=== PATIENT | male | born 1965 ===

== ENCOUNTER 2017-12-02 21:23 | Emergency (ER) | payer SELFPAY ==
[2017-12-02 21:28] VITALS: O2SAT 99
--- NOTE | 2017-12-02 22:11 | ED PDOC ---
HPI: General Adult Time Seen by Provider: 12/02/17 21:39 Chief Complaint (Nursing): High Blood Pressure Chief Complaint (Provider): medical and psych clearnace History Per: Patient History/Exam Limitations: no limitations Onset/Duration Of Symptoms: Hrs (today) Additional Complaint(s): Lon Carrington is a 52 year old male, with a past medical history of HTN and diabetes, who presents to the emergency department with no complaints and in custody of [facility] for medical and psychiatric clearance for incarceration. Patient was placed on police arrest. Patient reports he did take his blood pressure medications this morning but neglected to take metformin. He denies any fever, chills, chest pain, shortness of breath, nausea, vomit, diarrhea, abdominal pain, suicidal or homicidal ideation, no visual or auditory hallucinations. No further medical complaints. PDM: Kevin Johnson Past Medical History Reviewed: Historical Data, Nursing Documentation, Vital Signs Vital Signs: Last Vital Signs Temp 98.6 F 12/02/17 21:24 Pulse 83 12/02/17 21:24 Resp 16 12/02/17 21:24 BP 153/103 H 12/02/17 21:24 Pulse Ox 99 12/02/17 22:17 - Medical History PMH: Diabetes, HTN - Surgical History Other surgeries: right hand surgery - Family History Family History: States: No Known Family Hx - Social History Current smoker - smoking cessation education provided: Yes (occasional) Alcohol: Occasional - Allergies Allergies/Adverse Reactions: Allergies Allergy/AdvReac Type Severity Reaction Status Date / Time No Known Allergies Allergy Verified 12/02/17 21:24 Review of Systems ROS Statement: Except As Marked, All Systems Reviewed And Found Negative Constitutional: Negative for: Fever, Chills Cardiovascular: Negative for: Chest Pain Respiratory: Negative for: Shortness of Breath Gastrointestinal: Negative for: Nausea, Vomiting, Abdominal Pain, Diarrhea Psych: Negative for: Suicidal ideation (homicidal ideation), Other (visual or auditory hallucination) Physical Exam - Reviewed Nursing Documentation Reviewed: Yes Vital Signs Reviewed: Yes - Physical Exam Appears: Positive for: Non-toxic, No Acute Distress Head Exam: Positive for: ATRAUMATIC, NORMOCEPHALIC Skin: Positive for: Normal Color, Warm, Dry Eye Exam: Positive for: Normal appearance, EOMI, PERRL Neck: Positive for: Painless ROM Cardiovascular/Chest: Positive for: Regular Rate, Rhythm. Negative for: Murmur Respiratory: Positive for: Normal Breath Sounds. Negative for: Respiratory Distress Gastrointestinal/Abdominal: Positive for: Normal Exam, Soft. Negative for: Tenderness Back: Positive for: Normal Inspection. Negative for: L CVA Tenderness, R CVA Tenderness, Vertebral Tenderness Extremity: Positive for: Normal ROM (upper and lower extremities). Negative for : Deformity, Swelling Neurologic/Psych: Positive for: Alert, Oriented. Negative for: Motor/Sensory Deficits - ECG O2 Sat by Pulse Oximetry: 99 (RA) Pulse Ox Interpretation: Normal Medical Decision Making Medical Decision Making: Initial Impression: 52 y/o male for psychiatric clearance. Initial Plan: --Crisis evaluation --Glucose, POC --Metformin 500 mg PO --Accucheck --Reevaluation 22:35 -Patient evaluated by crisis and is medically stable for discharge to [facility]. Diagnosis hypertension and diabetes. ----- Scribe Attestation: Documented by Dipesh Sutotn, acting as a scribe for Mariano Blancas MD. Provider Scribe Attestation: All medical record entries made by the Scribe were at my direction and personally dictated by me. I have reviewed the chart and agree that the record accurately reflects my personal performance of the history, physical exam, medical decision making, and the department course for this patient. I have also personally directed, reviewed, and agree with the discharge instructions and disposition. Disposition - Clinical Impression Clinical Impression: Diabetes, Hypertension - Disposition Disposition: Discharged/Transfer to Law Enforcement Disposition Time: 22:35 Condition: STABLE Additional Instructions: Patient is medically and psychiatrically stable for incarceration Instructions: Type 2 Diabetes, High Blood Pressure in Adults Forms: [employer] (Turkmen) Print Language: [id number]
[2017-12-02 22:46] VITALS: BP 150/90
[2017-12-02 22:48] VITALS: PULSE 88; RESP 18; TEMP 98.8
== END 2017-12-02 21:50 ==
LOC: H.ER 21:23
DX: E11.9 Type 2 diabetes mellitus without complications (principal); F17.200 Nicotine dependence, unspecified, uncomplicated; I10 Essential (primary) hypertension; Z00.8 Encounter for other general examination; Z02.89 Encounter for other administrative examinations